=== PATIENT | female | born 1955 | race Caucasian/White ===

== ENCOUNTER 2020-01-31 10:10 | Outpatient (CLI) | payer OTHER ==
--- NOTE | 2020-01-31 10:44 | RAD ---
EXAM: Chest 2 views: HISTORY: Cough COMPARISON: None. FINDINGS: There is a normal-sized cardiomediastinal silhouette. Atelectasis is seen in the right lung base. Th ere is elevation of the right hemidiaphragm. There is no evidence of consolidation, mass, or pleural effusion. The bones are unremarkable. IMPRESSION: No evidence of acute cardiopulmonary disease
== END 2020-01-31 10:11 | disposition home or self-care (01) ==
LOC: NAV RAD 10:10
PROVIDERS: ATTEND Family Medicine
DX: R05 Cough (principal)
CPT/HCPCS: 71046